=== PATIENT | male | born 1995 | race Asian ===

== ENCOUNTER 2019-08-11 14:10 | Emergency (ER) | payer OTHER ==
[~2019-08-11] VITALS: Ht 175.3 cm; Wt 77.3 kg
[2019-08-11 14:28] VITALS: BP 137/83; TEMP 101.4
[2019-08-11 14:53] LABS: STREP SCREEN NEGATIVE
[2019-08-11] MEDS ORDERED: AMOXICILLIN 50500 MG PO (15:00)
[2019-08-11] MEDS ORDERED: TAMIFLU 75MG75 MG PO (15:48)
[2019-08-11 16:10] VITALS: PULSE 104
== END 2019-08-11 16:00 | disposition home or self-care (01) ==
LOC: COL.ER 14:10
PROVIDERS: Physician Assistant
DX: J11.1 Influenza due to unidentified influenza virus with other respiratory manifestations (principal)